=== PATIENT | female | born 1930 | race Caucasian/White ===

== ENCOUNTER → 2018-03-06 | Outpatient (CLI) | payer MEDICARE, OTHER | LOC: M.RAD 13:50 | DX: M47.814 Spondylosis without myelopathy or radiculopathy, thoracic region (principal); M47.816 Spondylosis without myelopathy or radiculopathy, lumbar region; M47.812 Spondylosis without myelopathy or radiculopathy, cervical region; M19.041 Primary osteoarthritis, right hand; M19.042 Primary osteoarthritis, left hand; M85.88 Other specified disorders of bone density and structure, other site; M41.86 Other forms of scoliosis, lumbar region; G89.29 Other chronic pain ==

== ENCOUNTER → 2019-07-02 | Outpatient (CLI) | payer MEDICARE, OTHER | LOC: M.CT 11:42 | DX: M51.36 Other intervertebral disc degeneration, lumbar region (principal); M47.816 Spondylosis without myelopathy or radiculopathy, lumbar region; M48.061 Spinal stenosis, lumbar region without neurogenic claudication; M25.78 Osteophyte, vertebrae; M43.16 Spondylolisthesis, lumbar region; M41.85 Other forms of scoliosis, thoracolumbar region; M16.0 Bilateral primary osteoarthritis of hip; K76.89 Other specified diseases of liver; I70.0 Atherosclerosis of aorta; K44.9 Diaphragmatic hernia without obstruction or gangrene; K57.30 Diverticulosis of large intestine without perforation or abscess without bleeding ==

== ENCOUNTER → 2019-07-06 | Outpatient (CLI) | payer MEDICARE, OTHER | LOC: M.RAD 13:43 | DX: M17.11 Unilateral primary osteoarthritis, right knee (principal); M79.604 Pain in right leg; M79.605 Pain in left leg ==

== ENCOUNTER → 2019-07-14 | Outpatient (CLI) | payer MEDICARE, OTHER | LOC: M.ULTRA 12:32 | DX: M79.604 Pain in right leg (principal); M79.605 Pain in left leg; I25.10 Atherosclerotic heart disease of native coronary artery without angina pectoris ==

== ENCOUNTER → 2020-06-06 | Outpatient (CLI) | payer MEDICARE, OTHER ==
[2020-06-06 10:10] LABS: ABSOLUTE EOSINOPHILS 0.1 thou/uL (0.0-0.7); ABSOLUTE LYMPHOCYTES 1.6 thou/uL (0.8-5.3); ABSOLUTE MONOCYTES 0.7 thou/uL (0.0-1.2); BASOPHILS 0.6 %; EOSINOPHILS 1.5 %; HEMATOCRIT 36.9 % (37.0-47.0); HEMOGLOBIN 12.6 gm/dL (12.0-15.0); LYMPHOCYTES 29.6 %; MCH 33.1 pg (26.0-34.0); MCHC 34.1 g/dL (28.0-37.0); MCV 97.1 fL (80.0-100.0); MONOCYTES 12.6 %; MPV 9.9 fl. (7.2-11.1); NUCLEATED RBCS 0 /100WBC; PLATELET COUNT* 167 thou/uL (150-400); POLYS 55.7 %; RDW-CV 13.8 % (10.5-14.5); WBC 5.3 thou/uL (4.0-11.0)
[2020-06-06 10:22] LABS: ALBUMIN 3.7 g/dL (3.4-5.0); ALKALINE PHOSPHATASE 63 U/L (46-116); ANION GAP 5 mmol/L (7-16); BUN 25 mg/dL (7-18); CALCIUM 8.6 mg/dL (8.5-10.1); CHLORIDE 106 mmol/L (98-107); CHOLESTEROL 215 mg/dL (<200); CO2 31 mmol/L (21-32); CREATININE 0.9 mg/dL (0.6-1.3); GLUCOSE 102 mg/dL (70-99); HDL CHOLESTEROL 106 mg/dL (>40); LDL CHOLESTEROL 97 mg/dL (<100); POTASSIUM 3.8 mmol/L (3.5-5.1); SGOT 24 U/L (15-37); SGPT 33 U/L (30-65); SODIUM 142 mmol/L (136-145); TOTAL BILIRUBIN 0.5 mg/dL (<0.1-1.0); TOTAL PROTEIN 6.8 g/dL (6.4-8.2); TRIGLYCERIDE 61 mg/dL (<150); VLDL 12 mg/dL (<40)
[2020-06-06 10:52] LABS: SERUM ASSESSMENT Clear
== END ==
LOC: M.ULTRA 08:54
PROVIDERS: ATTEND Internal Medicine Gastroenterology
DX: K76.89 Other specified diseases of liver (principal); Z00.00 Encounter for general adult medical examination without abnormal findings; I10 Essential (primary) hypertension

== ENCOUNTER 2020-09-09 11:05 | Inpatient (IN) | payer MEDICARE, OTHER ==
[~2020-09-09] VITALS: Ht 157.5 cm; Wt 61.2 kg
[2020-09-09 11:24] VITALS: BP 131/66
[2020-09-09 11:44] LABS: ABSOLUTE LYMPHOCYTES 0.5 thou/uL (0.8-5.3); ABSOLUTE MONOCYTES 0.5 thou/uL (0.0-1.2); ABSOLUTE NEUTROPHILS 5.9 thou/uL (1.6-8.1); BASOPHILS 0.1 %; HEMATOCRIT 33.9 % (37.0-47.0); HEMOGLOBIN 11.8 gm/dL (12.0-15.0); LYMPHOCYTES 7.6 %; MCH 32.2 pg (26.0-34.0); MCHC 34.9 g/dL (28.0-37.0); MCV 92.3 fL (80.0-100.0); MPV 9.5 fl. (7.2-11.1); NUCLEATED RBCS 0 /100WBC; PLATELET COUNT* 152 thou/uL (150-400); POLYS 85.3 %; RBC 3.67 mil/uL (4.20-5.00); WBC 6.9 thou/uL (4.0-11.0)
[2020-09-09 11:54] LABS: CALCIUM 7.6 mg/dL (8.5-10.1); CREATININE 0.8 mg/dL (0.6-1.3); POTASSIUM 3.9 mmol/L (3.5-5.1)
[2020-09-09 11:58] LABS: ALBUMIN 2.5 g/dL (3.4-5.0); TOTAL BILIRUBIN 0.6 mg/dL (<0.1-1.0); TOTAL PROTEIN 5.9 g/dL (6.4-8.2)
--- NOTE | 2020-09-09 12:00 | NUR ---
AMBULATED PT IN HALLS. O2 SAT MAINTAINED AT >95% FOR THE DURATION. PT DENIES SOA
[2020-09-09] MEDS ORDERED: PREDNISONE5 MG PO (14:34)
[2020-09-09] MEDS ORDERED: SUPER THERAVIT1 EACH PO (14:34)
[2020-09-09 15:09] LABS: URINE BILIRUBIN NEGATIVE (Negative); URINE BLOOD TRACE (Negative); URINE CLARITY CLEAR; URINE COLOR YELLOW; URINE GLUCOSE-RANDOM NEGATIVE (Negative); URINE KETONES TRACE (Negative); URINE LEUKOCYTES-REFLEX NEGATIVE (Negative); URINE NITRITE-REFLEX NEGATIVE (Negative); URINE PROTEIN NEGATIVE (Negative); URINE SPECIFIC GRAVITY <= 1.005 (1.005-1.030)
[2020-09-09 17:04] VITALS: BP 146/113
--- NOTE | 2020-09-09 17:10 | NUR ---
SPOKE TO SEVERAL FAMILY MEMBERS TODAY AND UPDATED ON PLAN OF CARE. PT ASSISTED UP TO BR THROUGHOUT SHIFT
[2020-09-09 17:20] VITALS: BP 104/60
--- NOTE | 2020-09-09 20:30 | NUR ---
RECEIVED REPORT FROM SHANTHI FROM ER. PT ARRIVED TO TELE FLOOR AROUND 1720. ADMISSION EDUCATION COMPELTED. ADMISSION ASSESSMENT AND HISTORY COMPLETED BY KYAW RODRIGUEZ, THIS RN HAS REVIEWED AND AGREES WITH THE ASSESSMENT AND CHARTING OF KYAW RODRIGUEZ. VITALS CHARTED. TRANSFER COORDINATOR PLACED. PT SITTING UP IN BEDSIDE CHAIR UPON ASSESSMENT. DAUGHTER ON SPEAKER PHONE - ASKED LOTS OF QUESTIONS - THIS RN UPDATED HER AND ANSWERED QUESTIONS BEST POSSIBLE. THIS RN IN COMMUNICATION WITH SON NICOLE, WHO IS PT'S DPOA, MULTIPLE TIMES THIS EVENING REGARDING PT'S MEDICATIONS AND PLAN OF CARE. SPOKE WITH DR LUA AND DR RIZVI REGARDING PT'S PLAN OF CARE WELL. DR RIZVI IN CONTACT WITH NICOLE AND DR LUA TO CALL NICOLE WELL. OF THIS TIME NURSING WILL PROCEED WITH ORDERED MEDICATIONS. PER DR LUA, NON-CONTRACT CT ABD/PELVIS WILL BE REORDERED TOMORROW IF PT WILLING TO HAVE TEST DONE. REPORT GIVEN TO ABEL RODRIGUEZ. PT CURRENTLY RESTING COMFORTABLY IN BEDSIDE CHAIR. FALL PRECAUTIONS IN PLACE. HOURLY ROUNDING PERFORMED. CALL LIGHT IS WITHIN REACH.
[2020-09-09 21:50] VITALS: BP 118/57
[2020-09-10 05:23] VITALS: BP 120/59
--- NOTE | 2020-09-10 05:50 | NUR ---
PT A&O X4, FORGETFUL. SAT 91-92% ON RA. AFEBRILE. DPOA UPDATED AND MEDS GIVEN ORDERED. PT TAKES HER PILLS ONE AT A TIME. UP TO THE BR WITH CANE WITH MINIMUM ASSISTTANCE. BED ALARM ON FOR SAFETY. PT DENIED PAIN. APPLE JUICE AND JELLO GIVEN PER PT REQUEST AND SHE TOLERATED WELL. FAMILY LIFE EDUCATOR IN PLACE. CALL LIGHT WITHIN REACH. WILL CONTINUE TO MONITOR.
[2020-09-10 06:18] LABS: HEMATOCRIT 30.3 % (37.0-47.0); HEMOGLOBIN 10.6 gm/dL (12.0-15.0); MCH 32.3 pg (26.0-34.0); MCV 92.4 fL (80.0-100.0); MPV 10.4 fl. (7.2-11.1); PLATELET COUNT* 154 thou/uL (150-400); RBC 3.28 mil/uL (4.20-5.00); RDW-CV 13.2 % (10.5-14.5); WBC 4.6 thou/uL (4.0-11.0)
[2020-09-10 06:30] LABS: ALBUMIN 2.3 g/dL (3.4-5.0); CREATININE 0.7 mg/dL (0.6-1.3); MAGNESIUM 2.1 mg/dL (1.8-2.4); POTASSIUM 3.9 mmol/L (3.5-5.1); TOTAL BILIRUBIN 0.4 mg/dL (<0.1-1.0); TOTAL PROTEIN 5.5 g/dL (6.4-8.2)
[2020-09-10 08:15] VITALS: BP 144/72
--- NOTE | 2020-09-10 09:39 | EKG ---
[place] [address] ELECTROCARDIOGRAM REPORT Name: DINESH DALEY Room: [address] ADM IN M.R.#: [id number] Admission: 09/09/20 Attend Phys: Dong Damian Discharge: Date of : 32 Date of Service: 09/09/20 1115 Report #: [id number] THIS REPORT FOR: //name// [facility] ED Test Date: 2020-09-09 Test Time: 11:15:41 Pat Name: DINESH DALEY Department: Room: [facility] Gender: F [employer] Freight Forwarder: ADRIAN : 1930 Requested By: Mike Murphy Order Number: [id number] MD: Lawson Mahmood Measurements Intervals [place] Rate: 96 P: 40 AR: 152 QRS: 36 QRSD: 68 T: 8 QT: 333 QTc: 421 Interpretive Statements Sinus rhythm Baseline wander in lead(s) V6 No previous ECG available for comparison Electronically Signed On 09-10-2020 9:38:59 AERIAL GUNNER SUPERINTENDENT by Lawson Mahmood [email or web address] <ELECTRONICALLY SIGNED> By: Lawson Mahmood MD, FAC 09/10/20 0938 1115 1115 Lawson Mahmood MD, [facility] /EPI
[2020-09-10 11:25] LABS: ABSOLUTE LYMPHOCYTES 0.4 thou/uL (0.8-5.3); ABSOLUTE MONOCYTES 0.3 thou/uL (0.0-1.2); ABSOLUTE NEUTROPHILS 3.9 thou/uL (1.6-8.1); BASOPHILS 0.2 %; MONOCYTES 6.3 %; POLYS 84.5 %
[2020-09-10 11:26] LABS: NUCLEATED RBCS 0 /100WBC
--- NOTE | 2020-09-10 16:08 | NUR ---
CM ATTEMPTED TO CONTACT THE PT TO DISCUSS CM ASSESSMENT. NO ANSWER ON PT'S HOSPITAL ROOM PHONE. CM CONTACTED PT'S SON/DPOA AND HE INFORMS THAT THE PT IS NORMALLY VERY ACTIVE AND INDEPENDENT WITH ADL'S. PT RESIDES AT HOME ALONE HER SPOUSE JUST RECENTLY PASSED. PT HAD BEEN PROVIDING CARES FOR HER SPOUSE AT HOME FOR THE PAST 2 YEARS. PT USES A CANE FOR MOBILITY. NO OTHER DME. PT HAS 0 HX OF HH OR SNF. PT MAY BENEFIT FROM HH AT D/C. CM WILL REMAIN AVAILABLE TO ASSIST AND FOLLOW WITH D/C PLANNING.
[2020-09-10 18:43] VITALS: BP 142/75
--- NOTE | 2020-09-10 18:49 | NUR ---
PT IS ALERT AND ORIENTED BUT VERY FORGETFUL AND FULL OF ANXIETY PT WAS ON THE CALL LIGHT MULTIPLE TIMES TODAY AND HAD FAMILY CALL AND SHOW UP SECURITY TOLD PT AND FAMILY NO VISITORS FOR COVID PATIENTS SR ON MONITOR WITH PVCS AT TIMES LFA IV PT KEEPS PULLING ON IT AND GETTING UP WALKING AROUND UNSTEADY WITH CANE REFUSES BED ALARM REFUSES MOST MEDS NO SOA NOTED DIARRHEA INCONTINENT T/O DAY CALL LIGHT IN REACH
[2020-09-10 20:30] VITALS: BP 148/64
--- NOTE | 2020-09-10 23:06 | NUR ---
ASSUMED CARE OF PT AT 1900. PT IS ALERT AND ORIENTED. VSS. PERRLA. PT IS UP WITH A CANE AND 1 ASSIST. PT IS IN SINUS RYTHM ON THE TELEMETRY. PT IS RESTING COMFORTABLY IN BED. RESPIRATIONS ARE EVEN AND NONLABORED. WILL CONTINUE TO MONITOR PT.
[2020-09-11 04:58] VITALS: BP 155/76
--- NOTE | 2020-09-11 05:14 | NUR ---
PTS TEMP IS 99.7. PT REFUSES TYLENOL AND IBUPROFEN. PT ALSO REFUSES HER NIGHT MEDS LAST NIGHT. PT EDUCATED ON MEDS BUT STILL REFUSES.
[2020-09-11 05:31] LABS: ABSOLUTE LYMPHOCYTES 0.7 thou/uL (0.8-5.3); ABSOLUTE MONOCYTES 0.7 thou/uL (0.0-1.2); ABSOLUTE NEUTROPHILS 6.3 thou/uL (1.6-8.1); HEMATOCRIT 31.2 % (37.0-47.0); HEMOGLOBIN 10.9 gm/dL (12.0-15.0); LYMPHOCYTES 9.4 %; MCV 91.3 fL (80.0-100.0); MONOCYTES 8.5 %; MPV 10.3 fl. (7.2-11.1); NUCLEATED RBCS 0 /100WBC; PLATELET COUNT* 190 thou/uL (150-400); POLYS 82.1 %; RBC 3.41 mil/uL (4.20-5.00); RDW-CV 13.5 % (10.5-14.5); WBC 7.7 thou/uL (4.0-11.0)
[2020-09-11 05:59] LABS: ALBUMIN 2.1 g/dL (3.4-5.0); CALCIUM 7.5 mg/dL (8.5-10.1); CREATININE 0.7 mg/dL (0.6-1.3); MAGNESIUM 2.1 mg/dL (1.8-2.4); POTASSIUM 4.4 mmol/L (3.5-5.1); TOTAL BILIRUBIN 0.3 mg/dL (<0.1-1.0); TOTAL PROTEIN 5.2 g/dL (6.4-8.2)
[2020-09-11 08:00] VITALS: BP 133/67
[2020-09-11 16:00] VITALS: BP 150/75
[2020-09-11 20:00] VITALS: BP 141/77
--- NOTE | 2020-09-12 04:24 | NUR ---
assumed patient care at 1900. patient very needy and states " I need a lot of tlc" All patient needs addressed at that time. Patient able to comlete all adl's and procede to bed. Requested IV be taken out. Rn complied, confirmed with DR that it was ok. Patient refused all medication except for supplements. No skin issues noted. cosmetic chemist and hourly rounding completed as charted. PAtient also requested to not be bothered by any staff or family throughout the night as she was tired and wanted to rest.
[2020-09-12 05:47] LABS: ABSOLUTE MONOCYTES 0.7 thou/uL (0.0-1.2); ABSOLUTE NEUTROPHILS 5.5 thou/uL (1.6-8.1); BASOPHILS 0.1 %; EOSINOPHILS 0.2 %; HEMATOCRIT 30.9 % (37.0-47.0); HEMOGLOBIN 10.9 gm/dL (12.0-15.0); LYMPHOCYTES 13.7 %; MCH 32.3 pg (26.0-34.0); MCHC 35.2 g/dL (28.0-37.0); MCV 91.9 fL (80.0-100.0); MONOCYTES 10.2 %; MPV 9.9 fl. (7.2-11.1); NUCLEATED RBCS 0 /100WBC; PLATELET COUNT* 194 thou/uL (150-400); POLYS 75.8 %; RBC 3.36 mil/uL (4.20-5.00); RDW-CV 13.2 % (10.5-14.5); WBC 7.2 thou/uL (4.0-11.0)
[2020-09-12 06:03] LABS: ALBUMIN 2.1 g/dL (3.4-5.0); CALCIUM 7.7 mg/dL (8.5-10.1); CREATININE 0.6 mg/dL (0.6-1.3); POTASSIUM 3.8 mmol/L (3.5-5.1); TOTAL BILIRUBIN 0.4 mg/dL (<0.1-1.0); TOTAL PROTEIN 5.1 g/dL (6.4-8.2)
[2020-09-12 09:45] VITALS: BP 128/66
[2020-09-12] MEDS ORDERED: VITAMIN B-1100 M1 PO (10:20)
[2020-09-12] MEDS ORDERED: PREDNISONE 20 M20 MG PO (10:20)
[2020-09-12 11:06] VITALS: BP 141/77
--- NOTE | 2020-09-12 11:10 | NUR ---
CALLED PT.IN ROOM TO SEE WHO SHE WOULD LIKE TO USE FOR HOME HEALTH. SHE SAID RELIGION. TOLD HER I WOULD SET UP HH AND THEY WOULD CALL HER TOMORROW WOT SET UP APPT.TO SEE HER.
[2020-09-12 11:11] VITALS: BP 141/77
--- NOTE | 2020-09-12 11:53 | NUR ---
RECEVIED REPORT. ASSUMED CARE OF PT AROUND 0730. AM ASSESSMENT AND VITALS COMPLETED CHARTED. PROMOTION OFFICER IN PLACE. PT ADAMANT THAT SHE WAS TO LEAVE TODAY AND THAT SHE HAD "MADE ALL HER OWN ARRAGEMENTS ALREADY". PT O2 SATS IN MID 90'S ON RA. DR ROSE IN TO SEE PT, DISCHARGE WITH HH ORDERS RECEIVED. O2 REST AND EXERCISE SATURATION ORDERED BUT PT REFUSED TO STAY TO WAIT FOR IT, SAYING "I DON'T NEED ANY OXYGEN". CARDIAC MONTOR REMOVED. ALL BELONGINGS GATHERED AND SENT OUT WITH PT. PT AWARE TO DISTRIBUTED ENERGY SYSTEMS CONSULTANT SCRIPTS FROM HER PHARMACY. SON NICOLE UPDATED THAT PT WAS BEING DC'D AND LEAVING WITH NIRMALA HER CAREGIVER. PT FORGOT HER LAPTOP - SON NICOLE WILL BE COMING UP LATER TODAY TO PICK IT UP. PT LEFT UNIT IN WC WITH NURSING STAFF. PT LEFT HOSPITAL IN CAR WITH NIRMALA.
--- NOTE | 2020-09-12 16:39 | NUR ---
PERRI SPOKE WITH INTAKE AT [facility] TO GET FAX NUMBER FOR ORDERS. SHE SAID THEY WERE OVERBOOKED ON NURSING SO COULD NOT ACCEPT PT. CM CALLED PT.AT HOME. SHE COULD NOT THINK OF THE OTHER AGENCY HER HAD BEFORE HE PASSED. SHE HAD ME LOOK IN HIS RECORDS FROM PRE[facility]OUS [facility]OSPITAL STA[facility]. HE HAD ALSO USED [employer] [facility] . SHE SAID YES THAT WAS IT. THATS WHO I WANT TO USE. PERRI FAXED REFERRAL AND DISCHARGE ORDERS TO [facility] [phone]. WILL CONFIRM THAT THEY RECEIVED.
== END 2020-09-12 11:25 | disposition home health service (06) | DRG 177 ==
LOC: M.ERS 11:05 → M.TBA-ER 13:36 → M.ORTHSURG 13:36
PROVIDERS: Emergency Medicine Emergency Medical Services; ADMIT Internal Medicine; ATTEND Internal Medicine
PROC: XW033E5 Introduction of Remdesivir Anti-infective into Peripheral Vein, Percutaneous Approach, New Technology Group 5 (ICD-10-PCS; principal; 2020-09-09)
DX: U07.1 COVID-19 (principal); J96.01 Acute respiratory failure with hypoxia; K85.90 Acute pancreatitis without necrosis or infection, unspecified; E43 Unspecified severe protein-calorie malnutrition; J12.82 Pneumonia due to coronavirus disease 2019; E87.1 Hypo-osmolality and hyponatremia; B17.9 Acute viral hepatitis, unspecified; E87.2 Acidosis; Z79.899 Other long term (current) drug therapy; Z68.24 Body mass index [BMI] 24.0-24.9, adult

== ENCOUNTER → 2020-12-20 | Outpatient (CLI) | payer MEDICARE, OTHER ==
[~2020-12-20] MED LIST: PREDNISONE 20 M20 MG PO; PREDNISONE5 MG PO; SUPER THERAVIT1 EACH PO; VITAMIN B-1100 M1 PO
== END ==
LOC: M.ULTRA 09:00
PROVIDERS: ATTEND Internal Medicine Gastroenterology
DX: R93.5 Abnormal findings on diagnostic imaging of other abdominal regions, including retroperitoneum (principal); K76.89 Other specified diseases of liver

== ENCOUNTER → 2021-01-17 | Outpatient (CLI) | payer MEDICARE, OTHER ==
[2021-01-17 10:04] LABS: HEMATOCRIT 37.7 % (37.0-47.0); HEMOGLOBIN 12.7 gm/dL (12.0-15.0); MCH 32.9 pg (26.0-34.0); MCHC 33.8 g/dL (28.0-37.0); MCV 97.6 fL (80.0-100.0); MPV 9.9 fl. (7.2-11.1); RBC 3.86 mil/uL (4.20-5.00); RDW-CV 13.8 % (10.5-14.5); WBC 6.5 thou/uL (4.0-11.0)
[2021-01-17 21:06] LABS: T3 UPTAKE 26 % (24-39)
== END ==
LOC: M.LAB 09:39
PROVIDERS: ATTEND Internal Medicine Cardiovascular Disease
DX: R53.83 Other fatigue (principal)

== ENCOUNTER → 2021-03-09 | Outpatient (CLI) | payer MEDICARE, OTHER | LOC: M.RAD 15:04 | PROVIDERS: ATTEND Internal Medicine Gastroenterology | DX: R10.84 Generalized abdominal pain (principal); M47.816 Spondylosis without myelopathy or radiculopathy, lumbar region; M85.88 Other specified disorders of bone density and structure, other site; M16.0 Bilateral primary osteoarthritis of hip; M46.1 Sacroiliitis, not elsewhere classified ==